=== PATIENT | female | born 1980 | race Caucasian/White ===

== ENCOUNTER 2016-11-02 09:04 | Emergency (ER) | payer SELFPAY ==
[~2016-11-02] VITALS: Ht 162.6 cm; Wt 75.1 kg
[~2016-11-02 09:04] MED LIST: CHLO0.12 MT; HYDR-5688 PO; NAPR-1169 PO
[2016-11-02 09:09] VITALS: TEMP 36.7; Ht 162.6 cm; Wt 75.1 kg
[2016-11-02] MEDS ORDERED: PHEN95TA14 PO (09:22)
[2016-11-02] MEDS ORDERED: SULFAMETHOXAZOLE/TRIMETHOPRIM DS 800/160MG TAB PO STA (09:29)
[2016-11-02] MEDS ORDERED: PHENAZOPYRIDINE HOME PACK 200 MG VIAL PO ONE (09:30)
[2016-11-02] MEDS ORDERED: PHEN-876 PO (09:36)
[2016-11-02] MEDS ORDERED: SULF800T23 PO (09:36)
--- NOTE | 2016-11-02 09:36 | EMERGENCY ROOM VISIT NOTE ---
ED Visit Note First contact with patient: 09:19 CHIEF COMPLAINT: Frequent and painful urination for 2 days HISTORY OF PRESENT ILLNESS: Patient is an otherwise healthy 36-year-old white female who presents to the emergency department for evaluation of UTI symptoms started about 2 days ago. She notes urinary frequency, urgency, dysuria and a feeling of incomplete voiding. She denies back pain, fever, or vaginal discharge. Last menstrual period was 2 weeks ago, and she denies secondary to a tubal ligation. She has not had a UTI in several years. She tried using [id number] Azo which helped slightly. REVIEW OF SYSTEMS: Review of systems as per HPI. All other systems reviewed were negative. At least 6 systems reviewed. PMH: Electronic medical records are reviewed and summarized as above/below. See Problem List. SOCIAL HISTORY: Patient lives at home with her and family. Smoker. She is employed. PHYSICAL EXAM: Vital Signs: Reviewed Nurse's notes. CONSTITUTIONAL: Patient is a pleasant, well-appearing 36-year-old white female who is awake and alert and in no acute distress. CARDIOVASCULAR: Regular rate and rhythm. RESPIRATORY: Breath sounds equal and clear to auscultation without wheezes, rales, or rhonchi heard. Full and equal chest expansion without accessory muscle use or retractions. ABDOMEN: Bowel sounds are present. Abdomen is soft, nontender and nondistended. No CVA tenderness. INTEGUMENTARY: No lesions or rash, normal skin turgor. LYMPH: No lymphadenopathy. EMERGENCY DEPARTMENT COURSE: Patient provided a urine sample which was sent for culture. Old records were reviewed. Prior urine cultures show pansensitive Escherichia coli. Patient was given a Pyridium home pack and a dose of Bactrim DS in the emergency department, a prescription for a 7 day course. Differential diagnoses entertained includes UTI, hemorrhagic cystitis, PID, cervicitis, pyelonephritis among others. Medication reconciliation: I attest that I have personally reviewed the patient' s current medication list. Blood pressure screening : Patient was found to have normal blood pressure on screening and does not require follow-up. Problem List Medical Problems: (1) Acute bronchitis Status: Resolved (2) Bronchitis Status: Resolved (3) Encounter for removal of sutures Status: Resolved (4) Laceration of face, complicated Status: Resolved (5) Right knee pain Status: Resolved (6) Sinusitis Status: Resolved (7) Syncope Status: Resolved (8) UTI (urinary tract infection) Status: Resolved Surgical Problems: (1) section x2 Status: Resolved (2) History of tubal ligation Status: Resolved Current/Historical Medications Scheduled Phenazopyridine HCl (Pyridium), 200 MG PO TID Phenazopyridine Hcl (Azo Tabs), 1 TAB PO BID Sulfa/Trimethoprim (Bactrim Ds 800MG/160MG), 1 TAB PO BID Scheduled PRN Hydrocodone/Acetaminophen 5MG/325MG ([place] 5MG/325MG), 1 TABLET PO TID PRN for Pain Allergies Coded Allergies: No Known Allergies (Verified , 01/08/13) Vital Signs Date Time Temp Pulse Resp B/P (MAP) Pulse Ox O2 Delivery O2 Flow Rate FiO2 11/02/16 09:43 77 20 132/85 98 11/02/16 09:09 36.7 77 20 132/85 98 Room Air Medications Administered Medications (Trade) Dose Ordered Sig/Dian Route Start Time Stop Time Status Last Admin Dose Admin Phenazopyridine HCl (Phenazopyridine HCl 200MG Home Pack) 1 homepack UD ONCE PO 11/02/16 09:30 11/02/16 09:31 DC 11/02/16 09:41 1 HOMEPACK Trimethoprim/ Sulfamethoxazole (Septra Ds 800/ 160MG Tab) 1 tab NOW STAT PO 11/02/16 09:29 11/02/16 09:31 DC 11/02/16 09:41 1 TAB Departure Information Impression Primary Impression: UTI (urinary tract infection) Prescriptions Phenazopyridine HCl (Pyridium) 200 Mg Tab 200 MG PO TID, #10 TAB Prov: Lori Strickland PA 11/02/16 Sulfa/Trimethoprim (Bactrim Ds 800MG/160MG) Tab 1 TAB PO BID, #14 TAB Prov: Lori Strickland PA 11/02/16 Referrals Darnell Epps D.OBeatrice (PCP) Patient Instructions My [facility] Additional Instructions Trimethoprim-Sulfamethoxazole(Bactrim DS): Take one pill twice daily for 7 days for your urine infection. All antibiotics can cause diarrhea. If this occurs and you feel worse or it does not resolve in 1-2 days follow up with your doctor or return to the Emergency Department as this could be signs of serious underlying problems. Any medication can cause an allergic reaction, stop the pills immediately and return to the ER for rash, hives, breathing difficulties, or swelling. Pyridium 200mg: Take one pill three times daily as needed for urinary discomfort. This medication will turn your urine orange. This is normal and nothing to be concerned about. Ibuprofen(Motrin, Advil) may be used for fever or pain. Use 600mg every six hours as needed. Take with food. Avoid using more than 2400mg in a 24 hour period. Do not use 2400mg per day for more than three consecutive days without physician direction. Prolonged inappropriate use can lead to stomach upset or ulcers. This is available over the counter and typically comes in 200mg tablets. (AND/OR) Acetaminophen(Tylenol) may be used for fever or pain. Use 1000mg every eight hours as needed. Avoid using more than 3000mg in a 24 hour period. This is available over the counter. Read all the package inserts or medication information paperwork provided. If you have any questions or concerns call your primary provider, pharmacist or the ER for assistance. Rest and drink plenty of fluids. Continue current medications. Return to the ER immediately for worsening or persistent abdominal pain, vomiting, fevers, back or flank pain, worsening of your condition, or as needed. Follow up with your primary physician within 2-3 days for a recheck of the current condition.
[2016-11-02 09:43] VITALS: BP 132/85; PULSE 77; O2SAT 98
== END 2016-11-02 09:45 | disposition home or self-care (01) ==
LOC: C.EDB 09:05 → C.EDA 09:45
DX: N39.0 Urinary tract infection, site not specified (principal); Z98.51 Tubal ligation status; Z87.440 Personal history of urinary (tract) infections; Z86.19 Personal history of other infectious and parasitic diseases

== ENCOUNTER 2017-01-04 19:40 | Emergency (ER) | payer SELFPAY ==
[~2017-01-04] VITALS: Ht 162.6 cm; Wt 76.1 kg
[~2017-01-04 19:40] MED LIST changes: -CHLO0.12 MT; -NAPR-1169 PO; +PHEN-876 PO; +PHEN95TA14 PO; +SULF800T23 PO
[2017-01-04 19:47] VITALS: TEMP 37; Ht 162.6 cm; Wt 76.1 kg
[2017-01-04] MEDS ORDERED: KETOROLAC TROMETHAMINE 30 MG/ML VIAL IV STA (20:06)
[2017-01-04] MEDS ORDERED: CYCLOBENZAPRINE HCL 10 MG TAB PO STA (20:06)
[2017-01-04] MEDS ORDERED: IBUP-1050 PO (20:20)
--- NOTE | 2017-01-04 20:37 | DIAGNOSTIC IMAGING REPORT ---
CHEST ONE VIEW PORTABLE CLINICAL HISTORY: Right sided rib and back pain. No injury. COMPARISON STUDY: Chest radiograph October 02, 2015. FINDINGS: Lung volumes are normal. Lungs are clear. No pneumothorax or pleural effusion is present. Pulmonary vascularity is normal. Cardiomediastinal silhouette is normal. IMPRESSION: No acute cardiopulmonary findings. Electronically signed by: Mohsen Sharp M.D. 01/04/2017 8:36 PM Dictated Date/Time: 01/04/2017 8:35 PM
--- NOTE | 2017-01-04 20:43 | EMERGENCY ROOM VISIT NOTE ---
History First contact with patient: 19:53 Chief Complaint: RIB PAIN Stated Complaint: PAIN R SIDE, RIB CAGE AREA FOR 4 DAYS History of Present Illness The patient is a 36 year old female who presents to the Emergency Room with complaints of right sided rib and back pain that started 4 days ago. The patient denies any significant injury. She does admit to being fairly active at work. She works at a [employer]. The pain is slightly worse with movement. It is also worsened with deep inspiration. She denies any pressure in the front of her chest. No nausea or vomiting. No dizziness, lightheadedness, heart palpitations or sweating. The patient has tried ibuprofen with minimal relief of the pain. Review of Systems 10 system review performed and negative unless noted in HPI or below Past Medical/Surgical History Medical Problems: (1) Acute bronchitis (2) Bronchitis (3) Encounter for removal of sutures (4) Laceration of face, complicated (5) Right knee pain (6) Sinusitis (7) Syncope (8) UTI (urinary tract infection) Surgical Problems: (1) section x2 (2) History of tubal ligation Family History Hypertension Social History Smoking Status: Current Every Day Smoker Alcohol Use: none Drug Use: none Marital Status: in relationship Housing Status: lives with family Occupation Status: employed Current/Historical Medications Scheduled PRN Ibuprofen (Advil), 400 MG PO Q6 PRN for Pain Physical Exam Vital Signs Date Time Temp Pulse Resp B/P (MAP) Pulse Ox O2 Delivery O2 Flow Rate FiO2 01/04/17 19:47 37.0 122 18 135/85 99 Room Air Physical Exam VITALS: Vitals are noted on the nurse's note and reviewed by myself. Vital signs stable. GENERAL: 36-year-old female, mildly uncomfortable,nondiaphoretic, well- developed well-nourished. SKIN: The skin was without rashes, erythema, edema, or bruising. HEAD: Normocephalic atraumatic. NECK: Supple without nuchal rigidity. No lymphadenopathy. No JVD. HEART: Regular rate and rhythm without murmurs gallops or rubs. No tenderness palpated over the thorax. LUNGS: Clear to auscultation bilaterally without wheezes, rales or rhonchi. No accessory muscle use. ABDOMEN: Positive bowel sounds x 4.Soft, nontender, without organomegaly. No guarding or rebound tenderness. MUSCULOSKELETAL: Slight discomfort with abduction of the right shoulder. No tenderness elicited over the trapezius muscle. No tenderness over the scapula. No tenderness over the ribs bilaterally. Strength 5/5 throughout. NEURO: Patient was alert and oriented to person place and time. Normal sensation to touch. No focal neurological deficits. Medical Decision & Procedures ER Provider Diagnostic Interpretation: CT chest w/ contrast IMPRESSION: 1. No pulmonary emboli identified. 2. No acute intrathoracic findings. Electronically signed by: Mohsen Sharp M.D. 01/04/2017 9:46 PM Dictated Date/Time: 01/04/2017 9:38 PM The status of this report is Signed. Draft = Not yet reviewed or approved by Radiologist. Signed = Reviewed and approved by Radiologist. CXR IMPRESSION: No acute cardiopulmonary findings. Electronically signed by: Mohsen Sharp M.D. 01/04/2017 8:36 PM Dictated Date/Time: 01/04/2017 8:35 PM The status of this report is Signed. Draft = Not yet reviewed or approved by Radiologist. Signed = Reviewed and approved by Radiologist. Laboratory Results 01/04/17 20:25 Red Blood Count 4.35, Mean Corpuscular Volume 91.5, Mean Corpuscular Hemoglobin 32.2, Mean Corpuscular Hemoglobin Concent 35.2, Mean Platelet Volume 12.1, Neutrophils (%) (Auto) 62.1, Lymphocytes (%) (Auto) 29.9, Monocytes (%) (Auto) 6.8, Eosinophils (%) (Auto) 0.8, Basophils (%) (Auto) 0.1, Neutrophils # (Auto) 6.62, Lymphocytes # (Auto) 3.19, Monocytes # (Auto) 0.73, Eosinophils # (Auto) 0.09, Basophils # (Auto) 0.01 01/04/17 20:25 Test 01/04/17 20:25 01/04/17 21:15 White Blood Count 10.67 K/uL (4.8-10.8) Red Blood Count 4.35 M/uL (4.2-5.4) Hemoglobin 14.0 g/dL (12.0-16.0) Hematocrit 39.8 % (37-47) Mean Corpuscular Volume 91.5 fL (80-100) Mean Corpuscular Hemoglobin 32.2 pg (25-34) Mean Corpuscular Hemoglobin Concent 35.2 g/dl (32-36) Platelet Count 252 K/uL (130-400) Mean Platelet Volume 12.1 fL (7.4-10.4) Neutrophils (%) (Auto) 62.1 % Lymphocytes (%) (Auto) 29.9 % Monocytes (%) (Auto) 6.8 % Eosinophils (%) (Auto) 0.8 % Basophils (%) (Auto) 0.1 % Neutrophils # (Auto) 6.62 K/uL (1.4-6.5) Lymphocytes # (Auto) 3.19 K/uL (1.2-3.4) Monocytes # (Auto) 0.73 K/uL (0.11-0.59) Eosinophils # (Auto) 0.09 K/uL (0-0.5) Basophils # (Auto) 0.01 K/uL (0-0.2) RDW Standard Deviation 43.2 fL (36.4-46.3) RDW Coefficient of Variation 12.8 % (11.5-14.5) Immature Granulocyte % (Auto) 0.3 % Immature Granulocyte # (Auto) 0.03 K/uL (0.00-0.02) D-Dimer 520 ug/L FEU (0-500) Anion Gap 9.0 mmol/L (3-11) Est Creatinine Clear Calc Drug Dose 84.6 ml/min Estimated GFR () 93.4 Estimated GFR (Non- 80.6 BUN/Creatinine Ratio 10.7 (10-20) Calcium Level 9.1 mg/dl (8.5-10.1) Total Bilirubin 0.4 mg/dl (0.2-1) Aspartate Amino Transf (AST/SGOT) 13 U/L (15-37) Alanine Aminotransferase (ALT/SGPT) 27 U/L (12-78) Alkaline Phosphatase 51 U/L (45-117) Troponin I < 0.015 ng/ml (0-0.045) Total Protein 7.8 gm/dl (6.4-8.2) Albumin 4.1 gm/dl (3.4-5.0) Globulin 3.7 gm/dl (2.5-4.0) Albumin/Globulin Ratio 1.1 (0.9-2) Lipase 227 U/L (73-393) Urine Color DK YELLOW Urine Appearance CLEAR (CLEAR) Urine pH 5.0 (4.5-7.5) Urine Specific Hansen 1.030 (1.000-1.030) Urine Protein NEG (NEG) Urine Glucose (UA) NEG (NEG) Urine Ketones TRACE (NEG) Urine Occult Blood 2+ (NEG) Urine Nitrite NEG (NEG) Urine Bilirubin NEG (NEG) Urine Urobilinogen NEG (NEG) Urine Leukocyte Esterase NEG (NEG) Urine WBC (Auto) 1-5 /hpf (0-5) Urine RBC (Auto) 5-10 /hpf (0-4) Urine Hyaline Casts (Auto) 1-5 /lpf (0-5) Urine Epithelial Cells (Auto) 20-30 /lpf (0-5) Urine Bacteria (Auto) NEG (NEG) Urine Test NEG (NEG) Medications Administered Medications (Trade) Dose Ordered Sig/Dina Route Start Time Stop Time Status Last Admin Dose Admin Ketorolac Tromethamine (Toradol Inj) 30 mg NOW STAT IV 01/04/17 20:06 01/04/17 20:08 DC 01/04/17 21:03 30 MG Cyclobenzaprine HCl (Flexeril Tab) 10 mg NOW STAT PO 01/04/17 20:06 01/04/17 20:09 DC 01/04/17 21:02 10 MG Morphine Sulfate (MoRPHine SULFATE INJ) 4 mg ONE STAT IV 01/04/17 21:25 01/04/17 21:26 DC 01/04/17 21:51 4 MG ECG Indication: back/shoulder pain Rate (beats per minute): 87 Rhythm: normal sinus Findings: other (nonspecific ST changes in II and III. No reciprocal changes noted.) Change: no significant change ED Course Patient was seen and examined Vital signs including blood pressure were reviewed medications list was verified with patient The patient was put on a monitor Labs were obtained, and a saline lock was established The patient was medicated with Toradol and Flexeril. Imaging was performed and reviewed Upon reevaluation, the patient was still complaining of pain. She was given 1 dose of morphine 4 mg IV We discussed the results of her workup. She will voiced understanding. She was resting more comfortably. I reviewed discharge instructions the patient. They voiced understanding and had no further questions. Medical Decision Differential diagnosis: Acute myocardial infarction, cardiac arrhythmia, anemia , thyroid abnormality, pneumothorax, pneumonia, bronchitis, pericarditis, electrolyte imbalance , musculoskeletal pain, rib contusion, rib fracture, pulmonary embolus This patient is a 36-year-old female that presents to the emergency department with complaints of right-sided rib pain radiating to her back. She did not have any significant trauma. I cannot elicit a significant amount of discomfort with range of motion or palpation. She does smoke. Her d-dimer was slightly elevated. For this reason, I opted to do a CT of the chest to rule out PE. This was negative for any pulmonary embolus or trauma. Her EKG is unchanged when compared to previous EKGs. Her troponin is negative. I do not suspect acute cardiac ischemia. This is likely musculoskeletal pain. The patient was given a short course of a muscle relaxant and tramadol. She was instructed to follow-up with her primary care physician if there is no improvement in the next 5 days. She'll return to the emergency department with any new or worsening symptoms. This chart was completed in part utilizing [employer] Voice Recognition software. Attempts were made to minimize the grammatical errors, random word insertions, pronoun errors and incomplete sentences. Any formal questions or concerns about the content, text or information contained within the body of this dictation should be directly addressed to the provider for clarification. Medication Reconcilliation Current Medication List: was personally reviewed by me Blood Pressure Screening Patient's blood pressure: Normal blood pressure Impression Primary Impression: Right-sided chest pain Departure Information Dispostion Home / Self-Care Condition [employer] Prescriptions Cyclobenzaprine Hcl (FLEXERIL) 10 Mg Tab 10 MG PO TID for Muscle Spasms, #15 TAB Prov: Rosanna Hoover PA-C 01/04/17 Tramadol (Ultram) 50 Mg Tab 1 TAB PO Q4H Y for Pain, #15 TAB For Initial Treatment Prov: Rosanna Hoover PA-C 01/04/17 Referrals No Doctor, Assigned (PCP) Patient Instructions My [facility] Additional Instructions You were evaluated in the emergency department for right-sided chest/rib pain. This is likely musculoskeletal in nature. No strenuous activity for 2 days. Please apply a heating pad intermittently to the affected area Ibuprofen 600 mg every 8 hours as needed for pain. Ultram 1 tab every 4 hours as needed for severe pain. This may be taken with ibuprofen. Flexeril 1 tab every 8 hours as needed for muscle spasms/pain. Please do not drive or operate machinery while taking this medication. It may make you drowsy. Please follow-up with her primary care physician if there is no improvement in the next 5 days. Please return to the emergency department with any new or concerning symptoms.
[2017-01-04 20:45] LABS: BASO % 0.1 %; BASO ABS # 0.01 K/uL (0-0.2); COMPLETE YES; EOS % 0.8 %; HEMATOCRIT 39.8 % (37-47); IG% 0.3 %; LYMPH % 29.9 %; LYMPH ABS # 3.19 K/uL (1.2-3.4); MEAN CELL VOLUME 91.5 fL (80-100); MEAN CORPUSCULAR HEMOGLOBIN 32.2 pg (25-34); MEAN CORPUSCULAR HGB CONC 35.2 g/dl (32-36); MEAN PLATELET VOLUME 12.1 fL (7.4-10.4); MONO % 6.8 %; NEUT % 62.1 %; PLATELET COUNT 252 K/uL (130-400); RED BLOOD COUNT 4.35 M/uL (4.2-5.4); WHITE BLOOD COUNT 10.67 K/uL (4.8-10.8)
[2017-01-04 21:02] LABS: ALT/SGPT 27 U/L (12-78); BLOOD UREA NITROGEN 10 mg/dl (7-18); BUN/CREATININE RATIO 10.7 (10-20); CALCIUM 9.1 mg/dl (8.5-10.1); CARBON DIOXIDE 26 mmol/L (21-32); CHLORIDE 105 mmol/L (98-107); CREATININE 0.91 mg/dl (0.60-1.20); GLUCOSE 79 mg/dl (70-99); POTASSIUM 3.3 mmol/L (3.5-5.1); SODIUM 140 mmol/L (136-145)
[2017-01-04 21:07] LABS: ALB/GLOB RATIO 1.1 (0.9-2); ALKALINE PHOSPHATASE 51 U/L (45-117); AST/SGOT 13 U/L (15-37)
[2017-01-04] MEDS ORDERED: MoRPHine SULFATE 4 MG/ML 1 ML CARP\\VIAL IV STA (21:25)
[2017-01-04] MEDS ORDERED: OPTIRAY 320 IV PRN (21:30)
[2017-01-04 21:37] LABS: URINE APPEARANCE CLEAR (CLEAR); URINE BILIRUBIN NEG (NEG); URINE COLOR DK YELLOW; URINE EPITHELIAL CELL AUTO 20-30 /lpf (0-5); URINE NITRITE NEG (NEG); UROBILINOGEN NEG (NEG)
[2017-01-04 21:46] LABS: MANUAL MICROSCOPIC REQUIRED? NO; REVIEW REQ? NO
--- NOTE | 2017-01-04 21:47 | DIAGNOSTIC IMAGING REPORT ---
CT ANGIOGRAPHY OF THE CHEST, PULMONARY EMBOLUS PROTOCOL CLINICAL HISTORY: Right sided rib and back pain. No trauma. COMPARISON STUDY: Chest CT May 10, 2014 and chest radiograph performed earlier today. TECHNIQUE: Following IV administration of 93 mL of Optiray-320, helical axial images of the chest were obtained utilizing the pulmonary embolus protocol. Maximal intensity projections and sagittal and coronal reformats were viewed on an independent 3D workstation. IV contrast was administered without complication. A dose lowering technique was utilized adhering to the principles of ALARA. CT DOSE: 345.96 mGy.cm FINDINGS: No pulmonary emboli are identified. The size of the heart is normal. There is no pericardial effusion. There is no evidence of thoracic aortic dissection. No enlarged axillary, mediastinal or hilar lymph nodes are present. Central airways are patent. There is no consolidation to suggest pneumonia. No pneumomediastinum is present. There is no pneumothorax or pleural effusion. No fractures are identified within visualized portions of the ribs. Upper abdomen is unremarkable. IMPRESSION: 1. No pulmonary emboli identified. 2. No acute intrathoracic findings. Electronically signed by: Mohsen Sharp M.D. 01/04/2017 9:46 PM Dictated Date/Time: 01/04/2017 9:38 PM
[2017-01-04] MEDS ORDERED: TRAM-10 PO (22:23)
[2017-01-04] MEDS ORDERED: CYCL10TA6 PO (22:23)
[2017-01-04 22:34] VITALS: BP 139/78; PULSE 78; O2SAT 98
== END 2017-01-04 22:35 | disposition home or self-care (01) ==
LOC: C.EDB 19:44 → C.EDD 22:35
DX: R07.9 Chest pain, unspecified (principal); F17.200 Nicotine dependence, unspecified, uncomplicated; Z87.442 Personal history of urinary calculi; Z98.51 Tubal ligation status; Z82.49 Family history of ischemic heart disease and other diseases of the circulatory system

== ENCOUNTER 2017-02-18 08:30 | Emergency (ER) | payer SELFPAY ==
[~2017-02-18] VITALS: Ht 165.1 cm; Wt 79.3 kg
[~2017-02-18 08:30] MED LIST changes: -HYDR-5688 PO; +IBUP-1050 PO; -PHEN-876 PO; -PHEN95TA14 PO; -SULF800T23 PO; +TRAM-10 PO
[2017-02-18 08:41] VITALS: TEMP 36.8; Ht 165.1 cm; Wt 79.3 kg
[2017-02-18] MEDS ORDERED: NITROFURANTOIN MONOHYDRATE 100 MG CAP PO STA (08:54)
[2017-02-18] MEDS ORDERED: NITR-5 PO (08:59)
[2017-02-18] MEDS ORDERED: PHEN-876 PO (08:59)
--- NOTE | 2017-02-18 08:59 | EMERGENCY ROOM VISIT NOTE ---
History First contact with patient: 08:44 Chief Complaint: URINARY SYMPTOMS Stated Complaint: URINARY TRACT INFECTION History of Present Illness The patient is a 36 year old female who presents to the Emergency Room with complaints of urinary symptoms. The patient reports that she has had urinary urgency and dysuria for the past 6 hours. She has a history of UTIs and states this feels similar. She rates her discomfort a 5/10. She denies abdominal pain , back pain, vaginal discharge or fevers. Review of Systems A complete 10 point review of systems was reviewed with the patient with pertinent positives and negatives as per history of present illness. All else were negative. Past Medical/Surgical History Medical Problems: (1) Acute bronchitis (2) Bronchitis (3) Encounter for removal of sutures (4) Laceration of face, complicated (5) Right knee pain (6) Sinusitis (7) Syncope (8) UTI (urinary tract infection) Surgical Problems: (1) section x2 (2) History of tubal ligation Family History Hypertension Social History Smoking Status: Never Smoker Alcohol Use: none Drug Use: none Marital Status: in relationship Housing Status: lives with family Occupation Status: employed Current/Historical Medications No Active Prescriptions or Reported Meds Physical Exam Vital Signs Date Time Temp Pulse Resp B/P (MAP) Pulse Ox O2 Delivery O2 Flow Rate FiO2 02/18/17 08:41 36.8 92 18 126/81 98 Room Air Physical Exam VITALS: Vitals are noted on the nurse's note and reviewed by myself. Vital signs stable. GENERAL: This is a 36-year-old female, in no acute distress, nondiaphoretic, well-developed well-nourished. HEART: Regular rate and rhythm without murmurs gallops or rubs. LUNGS: Clear to auscultation bilaterally without wheezes, rales or rhonchi. ABDOMEN: Positive bowel sounds x 4. Soft, nontender to palpation. No CVA tenderness. NEURO: Patient was alert and oriented to person place and time. Medical Decision & Procedures Medical Decision Differential diagnosis includes UTI, vaginal infection, interstitial cystitis, among others. Patient was evaluated as above. Presentation is consistent with urinary tract infection. Culture was sent. Urine dip was contaminated due to use of Pyridium. Patient will be placed on Macrobid. She verbalized understanding of my assessment and treatment plan and was discharged home in good condition. Medication Reconcilliation Current Medication List: was personally reviewed by me Blood Pressure Screening Patient's blood pressure: Normal blood pressure Impression Primary Impression: UTI (urinary tract infection) Departure Information Dispostion Home / Self-Care Condition GOOD Prescriptions No Active Prescriptions or Reported Meds Referrals No Doctor, Assigned (PCP) Patient Instructions My [facility] Additional Instructions You have been treated in the Emergency Department for a Urinary Tract Infection (UTI). You have been prescribed Macrobid to be taken twice daily as prescribed. This is an antibiotic. All antibiotics have the potential to cause diarrhea. Stop this medication and contact a medical provider if you were to develop any significant adverse side effects including: wheezing, shortness of breath, passing out, vomiting, or a diffuse rash. Always take antibiotics as directed and COMPLETE the ENTIRE course regardless of the improvement of your symptoms. You have been prescribed Pyridium to be taken as prescribed. This medicine will help with the urinary symptoms that you have been experiencing. Be aware that Pyridium may turn your urine a red-orange or brown color. This effect is harmless. Drink plenty of water and stay well hydrated. As with any trip to the Emergency Department, you should follow-up with your Primary Care Provider from today's visit. Return to the emergency department if your symptoms persist despite treatment plan outlined above or if the following symptoms occur: increased fevers, chills , low back pain, nausea/vomiting, or blood in your urine. Problem Qualifiers Primary Impression: UTI (urinary tract infection)
[2017-02-18 09:17] VITALS: BP 129/93; PULSE 84; O2SAT 99
== END 2017-02-18 09:18 | disposition home or self-care (01) ==
LOC: C.EDB 08:31 → C.EDC 09:18
DX: N39.0 Urinary tract infection, site not specified (principal); Z87.440 Personal history of urinary (tract) infections; Z98.891 History of uterine scar from previous surgery; Z98.51 Tubal ligation status; Z82.49 Family history of ischemic heart disease and other diseases of the circulatory system

== ENCOUNTER 2017-09-28 11:03 | Emergency (ER) | payer SELFPAY ==
[~2017-09-28] VITALS: Ht 162.6 cm; Wt 74.6 kg
[2017-09-28 11:21] VITALS: TEMP 36.7; Ht 162.6 cm; Wt 74.6 kg
[2017-09-28] MEDS ORDERED: PHEN-876 PO (12:05)
[2017-09-28] MEDS ORDERED: NITR-5 PO (12:05)
[2017-09-28 12:32] VITALS: BP 123/91; PULSE 77; O2SAT 100
--- NOTE | 2017-09-29 16:38 | EMERGENCY ROOM VISIT NOTE ---
ED Visit Note First contact with patient: 11:22 Chief Complaint: Urinary symptoms. History of Present Illness: Ms. Reich is a 37-year-old white female who ambulates into the ED accompanied by her daughter complaining of urinary symptoms. Historically patient reports she has typically had 2 urinary tract infections a year for many years. Additionally she does reports she is status post section and tubal ligation. Patient reports she was feeling well yesterday and then 3:00 this morning, approximately 8 hours ago, she woke from sleep to go to the bathroom and noticed urinary burning. Since that time she has been having increasing urinary burning and increased urinary frequency and feelings of incomplete voiding after urination. She reports the burning is at the late phase of her urination. She rates her discomfort 6/10. She also reports mild suprapubic discomfort. She describes this as a cramping sensation. She rates this discomfort 2/10. This is constant and slightly worsened with urination. She has not identified any alleviating factors related to the symptoms. For her urinary burning she reports she is taken [id number] AZO twice since the onset of her symptoms. She denies any associated fevers, chills, sweats, skin eruptions, skin color changes, upper abdominal pain, back/flank pain, nausea, vomiting, diarrhea, constipation, rectal bleeding, black/tarry stools, vaginal bleeding, vaginal discharge. Review of Systems: As noted above in history of present illness. 8 body systems were reviewed and found to be negative as noted above. Past Medical History: As previously noted. Current Medications: Patient denies. Allergies to Medications: Patient denies. Social History: Patient is currently employed; she feels safe in her home environment; she admits to tobacco use and denies alcohol use. Physical Examination: Vital Signs: Date Time Temp Pulse Resp B/P (MAP) Pulse Ox O2 Delivery O2 Flow Rate FiO2 09/28/17 12:32 77 18 123/91 100 09/28/17 11:21 36.7 83 18 147/82 97 Room Air GENERAL: 37-year-old female in mild distress due to pain, nontoxic-appearing, afebrile and hemodynamically stable. NEUROLOGICAL: Awake, alert and oriented to person, place and time. Answering questions appropriately and following commands. Normal gait. Good hand eye coordination. No focal motor or sensory deficits. SKIN: Warm, dry and pink. No soft tissue eruptions or trauma noted. HEENT: Atraumatic and normocephalic. PERRLA. Sclera white and conjunctiva pink. No drainage from naris. Oral cavity moist and pink. Pharynx is nonerythematous or edematous. Speech normal. No lymphadenopathy. Trachea midline. No jugular venous distention. BACK: No tenderness over the bony spine. No CVA tenderness. THORAX: Lungs sounds are clear to auscultation and equal bilaterally with symmetrical chest wall. No wheezing, rales or rhonchi. No crepitus, tenderness , subcutaneous air or deformities noted. HEART: Regular rate and rhythm. No gallops, rubs or murmurs are appreciated. ABDOMEN: Flat and soft with mild suprapubic tenderness. And nontender. Positive bowel sounds in all quadrants. No guarding, rigidity or organomegaly. EXTREMITIES: Moves all extremities well on command and with purpose. All distal neurovascular statuses are intact and equal bilaterally. ED Course: Patient is assessed as noted above. Patient's medication list was reviewed. Laboratory Testing Test 09/28/17 11:30 Range/Units Urine Color ORANGE Urine Appearance SLIGHTLY CLOUDY CLEAR Urine pH 4.5-7.5 Urine Specific [place] 1.010 1.000-1.030 Urine Protein NEG NEG Urine Glucose (UA) NEG Urine Ketones NEG Urine Occult Blood NEG Urine Nitrite NEG Urine Bilirubin NEG Urine Urobilinogen NEG Urine Leukocyte Esterase NEG Urine RBC >30 0-4 /hpf Urine WBC >30 0-5 /hpf Urine Epithelial Cells 10-20 0-5 /lpf Urine Bacteria 1+ NEG Urine Test NEG NEG Urine Culture: Pending. Patient was educated about today's findings and instructed on her treatment plan ; she verbalizes understanding and agreement with this plan. Clinical Impression: Urinary tract infection Disposition: Patient discharged home in stable condition accompanied by her daughter; prior to departure she was reassessed and subjectively reported she was feeling the same. Plan: Patient was prescribed Macrobid 100 mg 2 times a day for 7 days and Pyridium 200 mg 3 times a day for 2 days. Patient was encouraged not to use AZO additional lead to the Pyridium. Patient was encouraged use ibuprofen or acetaminophen as needed for pain. Patient was encouraged to stay well-hydrated with increased clear fluids. Patient was encouraged to follow-up with family physician for recheck in 2-3 days for culture results. Patient was encouraged return the ED for worsening symptoms, fevers, vomiting, severe back pain or any new/concerning symptoms.
== END 2017-09-28 12:33 | disposition home or self-care (01) ==
LOC: C.EDB 11:04 → C.EDD 12:33
DX: N39.0 Urinary tract infection, site not specified (principal); F17.200 Nicotine dependence, unspecified, uncomplicated